=== PATIENT | male | born 1975 | race American Indian/Alaskan Native ===

== ENCOUNTER 2018-09-09 21:16 | Emergency (ER) | payer OTHER ==
--- NOTE | 2018-09-09 21:54 | Emergency Department Report ---
Chief Complaint: Headache Stated Complaint: HEADACHES Time Seen by Provider: 09/09/18 21:52 - HPI History of Present Illness: This is a 42 y.o. M. that presents to the ER with headache for 3 weeks. Taking NSAIDs with minimal improvement. No PMH Denies fever, cough, coryza, or myalgia. - Exam Vital Signs: Vital Signs 09/09/18 21:50 Temperature 97.9 F Pulse Rate 74 Respiratory 18 Rate Blood Pressure 137/75 O2 Sat by Pulse 100 Oximetry MSE screening note: Focused history and physical exam performed. Due to findings the following was ordered: ED Disposition for MSE Condition: Stable
--- NOTE | 2018-09-09 23:44 | Emergency Department Report ---
ED Headache HPI - General Chief Complaint: Headache Stated Complaint: HEADACHES Time Seen by Provider: 09/09/18 21:52 Source: patient - History of Present Illness Initial Comments: Mr. Oliva is a healthy 42-year-old gentleman with no significant past medical history who presents with intermittent headache for the past 3 weeks. He has frontal throbbing headache. [id number] Tylenol does provide relief. This headache is improved over the weekend with more time to rest. He attributes the headache to stress and long hours. 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 Last week he underwent a wellness check by his primary physician Eben Salmeron. He did mention his headaches to the primary care physician. He wanted to come to the ER to have it just checked out. Right now he does not have headache. The headache occurs intermittently every few days or so. Quality: mild Head Injury Location: frontal Recent Head Trauma: no recent headache/trauma Associated Symptoms: fatigue Allergies/Adverse Reactions: Allergies No Known Allergies Allergy (Verified 09/09/18 21:19) ED Review of Systems ROS: Stated complaint: HEADACHES Other details as noted in HPI Comment: All other systems reviewed and negative Constitutional: denies: fever, malaise Respiratory: denies: cough Cardiovascular: denies: chest pain ED Past Medical Hx - Past Medical History Previous Medical History?: No - Surgical History Past Surgical History?: No - Social History Smoking Status: Never Smoker Substance Use Type: Alcohol ED Physical Exam - General Limitations: No Limitations General appearance: alert, in no apparent distress, other (appears comfortable healthy) - Head Head exam: Present: atraumatic, normocephalic - Eye Eye exam: Present: normal appearance - ENT ENT exam: Present: mucous membranes moist - Neck Neck exam: Present: normal inspection, full ROM - Respiratory Respiratory exam: Present: normal lung sounds bilaterally. Absent: respiratory distress, wheezes, rales, rhonchi - Cardiovascular Cardiovascular Exam: Present: regular rate, normal rhythm, normal heart sounds. Absent: systolic murmur, diastolic murmur, rubs, gallop - GI/Abdominal GI/Abdominal exam: Present: soft, normal bowel sounds. Absent: distended, tenderness, guarding, rebound - Rectal Rectal exam: Present: deferred - Extremities Exam Extremities exam: Present: normal inspection - Back Exam Back exam: Present: normal inspection - Neurological Exam Neurological exam: Present: alert, oriented X3 - Psychiatric Psychiatric exam: Present: normal affect, normal mood - Skin Skin exam: Present: warm, dry, intact, normal color. Absent: rash ED Course Vital Signs 09/09/18 09/09/18 21:50 23:22 Temperature 97.9 F Pulse Rate 74 61 Respiratory 18 18 Rate Blood Pressure 137/75 Blood Pressure 139/88 [Right] O2 Sat by Pulse 100 100 Oximetry ED Medical Decision Making - Medical Decision Making Mr. Oliva presents with tension headache exacerbated by fatigue, stress related to work. No indication of intracranial mass or hemorrhage according to CT scan. I do not suspect aneurysm with this headache. I did suggest sleep study. He did admit to snoring. Sleep apnea could Explain his symptoms of headache and fatigue. Discharge home with reassurance and education. Critical care attestation.: If time is entered above; I have spent that time in minutes in the direct care of this critically ill patient, excluding procedure time. ED Disposition Clinical Impression: Tension headache Disposition: DC-01 TO HOME OR SELFCARE Is pt being admited?: No Does the pt Need Aspirin: No Condition: Stable Instructions: Tension Headache (ED) Additional Instructions: Dr. Liao recommends a sleep study to rule out sleep apnea. Referrals: PRIMARY CARE, [Referring] - [facility]
--- NOTE | 2018-09-10 00:32 | Cat Scan Report ---
PROCEDURE: CT HEAD/BRAIN WO CON TECHNIQUE: Computerized tomography of the head was performed without contrast material. HISTORY: headache COMPARISONS: None . FINDINGS: Brain: Brain density appears normal. No evidence of intracranial hemorrhage. No parenchymal hemorr dasha, mass lesions or mass effect are seen. No abnormal extra-axial fluid collects or masses are see n. Ventricles: Ventricles are normal size and are midline. Bone Windows: No evidence of skull fracture. Paranasal sinuses: Visualized portions are clear.. Mastoid air cells: Clear. IMPRESSION: Negative exam. . This document is electronically signed by Taqueria Dao MD., Sep 10 2018 12:30:08 AM ET
[2018-09-10 00:37] VITALS: BP 135/81
== END 2018-09-10 00:38 | disposition home or self-care (01) ==
LOC: ED 21:16
DX: G44.209 Tension-type headache, unspecified, not intractable (principal)
CPT/HCPCS: 70450; 99283